=== PATIENT | female | born 1955 | race Caucasian/White ===

== ENCOUNTER → 2017-01-03 | Outpatient (CLI) | payer OTHER | END | disposition home or self-care (01) | LOC: YCFC.O 15:22 | PROVIDERS: ATTEND Nurse Practitioner Family | DX: I50.9 Heart failure, unspecified (principal); I10 Essential (primary) hypertension; R73.09 Other abnormal glucose; E03.9 Hypothyroidism, unspecified; E78.5 Hyperlipidemia, unspecified; M79.604 Pain in right leg; M79.605 Pain in left leg ==

== ENCOUNTER → 2017-03-11 | Outpatient (CLI) | payer OTHER | END | disposition home or self-care (01) | LOC: LAB.O 16:31 | PROVIDERS: ATTEND Nurse Practitioner Family | DX: R06.00 Dyspnea, unspecified (principal); R60.0 Localized edema; D50.9 Iron deficiency anemia, unspecified; E03.9 Hypothyroidism, unspecified; R06.02 Shortness of breath ==

== ENCOUNTER → 2017-12-19 | Outpatient (CLI) | payer OTHER | LOC: YCFC.O 10:29 | PROVIDERS: ATTEND Nurse Practitioner Family | DX: I10 Essential (primary) hypertension (principal); E03.9 Hypothyroidism, unspecified; E78.5 Hyperlipidemia, unspecified; D50.9 Iron deficiency anemia, unspecified ==

== ENCOUNTER → 2018-03-24 | Outpatient (CLI) | payer OTHER ==
--- NOTE | 2018-03-24 17:01 | RAD ---
EXAM DESCRIPTION: Knee,Left 2 or More Views CLINICAL HISTORY: PAIN IN LEFT KNEE COMPARISON: Radiographs of the right knee on the same visit. TECHNIQUE/FINDINGS: AP LATERAL standing oblique standing , patellar sunrise image left knee. Findings: Medial subluxation of the left femur on the tibia. Medial and lateral compartment narrowing more on the lateral side. Marginal spurs and tibial spine spurs. Subchondral sclerosis more lateral than medial. Patellofemoral marginal spurs. Suprapatellar effusion. No abnormal radiodense objects in the soft tissues or joint spaces. No fracture. IMPRESSION: Tricompartmental osteoarthritis left knee more severe laterally than medially with suprapatellar effusion. No acute bony abnormalities. Electronically signed by: Scot Arredondo MD 03/24/2018 5:00 PM CDT
--- NOTE | 2018-03-24 17:05 | RAD ---
EXAM DESCRIPTION: Knee,Right 2 or More Views CLINICAL HISTORY: PAIN IN RIGHT KNEE COMPARISON: Radiographs left knee and pelvis. TECHNIQUE/FINDINGS: AP LATERAL standing, oblique standing, and patellar sunrise image right knee. Findings: Medial and lateral compartment narrowing more laterally. Subchondral sclerosis bilaterally. Marginal osteophytes and also spurs on the tibial spine. Medial subluxation of the right femur on the tibia. Marginal spurs on the patella femoral joint, larger on the medial margin. Suprapatellar effusion. No fracture. No abnormal radiodense objects in the soft tissues or joint spaces. IMPRESSION: Tricompartmental osteoarthritis of the right knee. More severely affecting the lateral compartment in the medial compartment of the patellofemoral joint. Suprapatellar effusion. No acute bony abnormality. Electronically signed by: Scot Arredondo MD 03/24/2018 5:04 PM CDT
--- NOTE | 2018-03-24 17:07 | RAD ---
EXAM DESCRIPTION: Pelvis CLINICAL HISTORY: PAIN IN LT/RT HIPS COMPARISON: Bilateral knee radiographs on the same visit. TECHNIQUE: AP view only. FINDINGS: No fracture dislocation. Minimally Decreased bone density. Minimal hypertrophy of the bilateral superior lateral acetabula. No fracture or dislocation. No abnormal radiodense objects in the soft tissues or joint spaces. IMPRESSION: Minimal loss of bone density. Minimal hypertrophy of the bilateral superior lateral acetabula. No fracture. Electronically signed by: Scot Arredondo MD 03/24/2018 5:06 PM CDT
--- NOTE | 2018-03-26 16:10 | MAM ---
EXAM DESCRIPTION: 3D Screening BILATERAL : Digital Mammography. CLINICAL HISTORY: 62 years Female SCREENING . No complaints. No family history breast cancer. Childbirth. Postmenopausal. No HRT. COMPARISON: 2-D digital screening bilateral study 06/24/2012.. No prior reports available. TECHNIQUE: Bilateral CC and MLO projection full-field images, 3-D tomosynthesis digital mammographic technique. CAD not utilized. FINDINGS: The breast parenchymal density pattern is: Almost entirely fatty. No skin thickening or nipple retraction. Bilateral solitary microcalcifications. No focal, stellate mass or density, focal asymmetry , and no suspicious microcalcifications bilaterally. Stable mammograms compared to prior study, taking into account differences in mammographic technique IMPRESSION: BI-RADS CATEGORY: 2 - BENIGN FINDINGS. FOLLOW UP: Routine digital bilateral screening, one year interval from March 2018. Written communication explaining the IMPRESSION and follow-up, will be mailed to the patient and referring health care provider. According to the [employer], yearly mammograms are recommended starting at age 40 and continuing as long as a woman is in good health. Any breast change noted on a breast self-exam should be reported promptly to the patient's healthcare provider. Breast MRI is recommended for women with an approximately 20-25% or greater lifetime risk of breast cancer, including women with a strong family history of breast or ovarian cancer and women who have been treated for Hodgkin's disease. A negative mammographic report should not delay tissue diagnosis in patients with significant clinical history or physical findings. Extremely dense breast tissue limits the sensitivity of digital mammography. Electronically signed by: Scot Arredondo MD 03/26/2018 4:08 PM CDT
== END ==
LOC: RAD 13:27
PROVIDERS: ATTEND Orthopaedic Surgery
DX: M25.551 Pain in right hip (principal); M25.552 Pain in left hip; M17.0 Bilateral primary osteoarthritis of knee; M25.561 Pain in right knee; M25.562 Pain in left knee

== ENCOUNTER → 2018-11-24 | Outpatient (CLI) | payer MEDICARE, OTHER ==
--- NOTE | 2018-11-24 10:59 | RAD ---
EXAM DESCRIPTION: Chest,2 Views CLINICAL HISTORY: PREOP COMPARISON: Previous chest x-ray August 02, 2016 TECHNIQUE: PA/lateral FINDINGS: Right hemidiaphragm is elevated. Heart size is normal with normal pulmonary vascularity. No pleural effusion or pneumothorax. Lungs are clear with no consolidating infiltrate. Lateral view shows intact sternum and T-spine. IMPRESSION: No acute process is identified in the chest. Electronically signed by: Raúl Alva MD 11/24/2018 10:56 AM [facility]
== END ==
LOC: LAB.O 09:32
PROVIDERS: ATTEND Nurse Practitioner Family
DX: Z01.818 Encounter for other preprocedural examination (principal)

== ENCOUNTER 2019-01-01 11:05 | Inpatient (IN) | payer MEDICARE, OTHER ==
[2019-01-01] MEDS ORDERED: SODIUM CHLORIDE 0.9% 500ML 500 ML ONE (11:25)
[2019-01-01] MEDS ORDERED: DEX 5% W/NACL 0.45% 1000ML 0 ML IVS ONE (13:27)
[2019-01-01] MEDS ORDERED: diphenhydrAMINE HCL 50 MG/ML VIAL ONE (14:12)
[2019-01-01] MEDS ORDERED: ACETAMINOPHEN 500 MG TAB PO PRN (14:45)
[2019-01-01] MEDS ORDERED: SODIUM CHLORIDE 0.9% (FLUSH) 10 ML SYG IV PRN (14:45)
[2019-01-01] MEDS ORDERED: MORPHINE SULFATE INJ 10 MG/ML VIAL IM PRN (14:45)
[2019-01-01] MEDS ORDERED: ONDANSETRON INJ 4 MG/2 ML VIAL IV PRN (14:45)
[2019-01-01] MEDS ORDERED: NALOXONE HCL INJ 0.4 MG/ML VIAL IV PRN (14:45)
[2019-01-01] MEDS ORDERED: PROMETHAZINE HCL INJ 12.5 MG in SODIUM CHLORIDE 0.9% 50ML 50 ML IVPB PRN (14:45)
[2019-01-01] MEDS ORDERED: PROMETHAZINE HCL INJ 25 MG in SODIUM CHLORIDE 0.9% 50ML 50 ML IVPB PRN (14:45)
[2019-01-01] MEDS ORDERED: MORPHINE PCA 1 MG/ML 100 ML BAG IVPB SCH (15:00)
[2019-01-01] MEDS: IV SET AND CAP CHANGE INJ INJ SCH (15:05)
[2019-01-01] MEDS: diphenhydrAMINE HCL 50 MG/ML VIAL IV PRN ×2 (15:06→20:14)
[2019-01-01] MEDS ORDERED: ceFAZolin SODIUM 2 GRAMS PREMI 50 ML IVPB ONE ×2 (15:53→19:28)
[2019-01-01] MEDS: ceFAZolin SODIUM 2 GRAMS PREMI 2 GM in PREMIX BAG 1 BAG IVPB SCH (16:16)
[2019-01-01] MEDS ORDERED: SODIUM CHLORIDE 0.9% 250ML 250 ML ONE ×2 (18:03→19:28)
[2019-01-01] MEDS ORDERED: VANCOMYCIN HCL INJ 1,000 MG VIAL IVPB ONE ×2 (18:04→19:28)
[2019-01-01] MEDS: VANCOMYCIN HCL INJ 1,000 MG in SODIUM CHLORIDE 0.9% 250ML 250 ML IVPB SCH (18:36)
[2019-01-01] MEDS ORDERED: ENOXAPARIN SODIUM 30 MG/0.3 ML SYG SUBCU ONE (19:28)
[2019-01-01] MEDS: DOCUSATE CALCIUM 240 MG CAP PO SCH (20:33)
[2019-01-01] MEDS ORDERED: busPIRone HCL 5 MG TAB PO PRN (20:58)
[2019-01-01] MEDS ORDERED: DIPHENOXYLATE HCL/ATROPINE 2.5 MG TAB PO PRN (20:58)
[2019-01-01] MEDS: MORPHINE SULFATE INJ 10 MG/ML VIAL IV PRN (20:58)
[2019-01-01] MEDS ORDERED: ALBUTEROL SULFATE 2.5 MG/3 ML VIAL NEB PRN (20:58)
[2019-01-01] MEDS ORDERED: NON-FORMULARY MEDICATION 1 EA MIS (Citalopram Hydrobromide [Citalopram Hydrobromide] 40 MG PO SCH (21:00)
[2019-01-01] MEDS ORDERED: FERROUS SULFATE PO SCH (21:00)
[2019-01-01] MEDS ORDERED: NON-FORMULARY MEDICATION 1 EA MIS (Atorvastatin Calcium [Lipitor] 80 MG) PO SCH (21:00)
[2019-01-01] MEDS ORDERED: NON-FORMULARY MEDICATION 1 EA MIS (Diltiazem Hcl [Diltiazem Hcl] 60 MG) PO SCH (21:00)
[2019-01-01] MEDS ORDERED: CITALOPRAM HBR 20 MG TAB ONE (21:05)
[2019-01-01] MEDS ORDERED: diltiaZEM HCL TAB 30 MG TAB ONE (21:05)
[2019-01-01] MEDS ORDERED: FERROUS SULFATE 325 MG TAB ONE (21:05)
[2019-01-01] MEDS ORDERED: ATORVASTATIN 20 MG TAB PO ONE (21:05)
[2019-01-01] MEDS: AMITRIPTYLINE HCL 25 MG TAB PO SCH (21:12)
--- NOTE | 2019-01-01 22:19 | CONS ---
DATE OF CONSULTATION: 01/01/19 SUPERVISING PHYSICIAN: Héctor Adams M.D. REASON FOR CONSULTATION: Medical management status post left total knee arthroplasty. HISTORY OF PRESENT ILLNESS: Ms. Park is a 63 year-old female patient with a longstanding history of severe knee pain that has progressively worsened over the last several months. She has had several attempts at conservative treatment measures but failed to receive any significant relief of pain. Due to the ongoing pain and failure of conservative outpatient treatment measures, she requested operative intervention with a total knee arthroplasty to be performed by Dr. Julito Alexandra. She was admitted for elective left total knee arthroplasty. She had just some mild hypertension in surgery and required an extended length of recovery time in PACU. She had no other complications and was admitted to the floor in stable condition. PAST MEDICAL HISTORY: 1. Anxiety disorder. 2. Hypertension. 3. Questionable seizure disorder having previously been on Depakote at some point not currently on any antiseizure medications. 4. Hypothyroidism. 5. Gastroesophageal reflux disease. 6. Hyperlipidemia. 7. Irregular heart beat on beta ellis and calcium channel blockers. 8. Osteoarthritis especially involving the knees. 9. Chronic diarrhea with irritable bowel syndrome. PAST SURGICAL HISTORY: 1. Bilateral cataracts. 2. Hysterectomy. 3. Cholecystectomy. 4. Right knee scope times 2. 5. Colonoscopy within the last 8 years reportedly normal. HOME MEDICATIONS: 1. Trazodone 100 mg b.i.d. 2. vitamins with iron 1 daily. 3. Potassium chloride 10 mEq daily. 4. Metoprolol tartrate 50 mg daily. 5. Prinivil 5 mg daily. 6. Synthroid 100 mcg daily. 7. Furosemide 40 mg daily. 8. Iron tablets 325 mg q.i.d. 9. Lomotil 2.5 mg q.i.d. as needed. 10. Diltiazem 60 mg b.i.d. 11. Diclofenac 75 mg b.i.d. 12. Colestipol 40 mg at bedtime. 13. Wellbutrin 5 mg q.i.d.a s needed. 14. Lipitor 80 mg daily. 15. Elavil 50 mg at bedtime. 16. Proventil nebs 2.5 mg every 4 hours as needed. 17. Albuterol sulfate handheld inhaler 1 puff every 4 hours as needed. ALLERGIES: LEVOFLOXACIN, CODEINE AND TAPE. FAMILY HISTORY: She has a sister that of lung cancer and was a heavy smoker. Her mother secondary to congestive heart failure. Father from aortic aneurysm. SOCIAL HISTORY: The patient is . Lives in [place], [place] and is retired. She denies any tobacco, illicit or alcohol usage. REVIEW OF SYSTEMS: CONSTITUTIONAL: Denies any weakness, fatigue, fevers, chills, unintentional weight loss. HEENT: Denies any ear aches, sore throat, nasal congestion. RESPIRATORY: Negative for any dyspnea, coughing or wheezing. CARDIOVASCULAR: Denies any chest pains, palpitations, syncopal episodes or tachycardia. GASTROINTESTINAL: History of irritable bowel syndrome. Denies any recent nausea, vomiting, diarrhea, abdominal pains or constipation. GENITOURINARY: Denies hematuria, polyuria, dysuria, nocturia. SKIN: Denies any lesions or rashes. NEUROLOGIC: Last seizure within the last 3 weeks prior to admission. She denies any headaches, dizziness or ataxia. Reports seizure activity as generalized shaking with the patient remaining conscious. PHYSICAL EXAMINATION: VITAL SIGNS: Temperature 97.6, pulse 89, blood pressure initially on the floor was 86/59, heart rate 54, respirations 16, satting 94% on room air. GENERAL: The patient appears her stated age. She is obese. She is resting comfortably in bed currently utilizing a CPM. Reports pain is controlled and appears to be in no acute distress. She is alert. HEENT: Tympanic membranes are clear bilaterally. Oropharynx is pink and moist without any lesions. NECK: Supple, non-tender with full range of motion. CHEST: Lungs are clear to auscultation without any rhonchi, wheezing or rales. HEART: Regular rate and rhythm without appreciable murmurs, gallops, or rubs. ABDOMEN: Obese but soft, non-tender. Positive bowel sounds. EXTREMITIES: No edema. There was a bulky dressing overlying the left knee status post left knee arthroplasty with pedal pulses 2+ bilaterally. NEUROLOGIC: She is awake, alert and oriented times three. SKIN: [place], warm and dry. LABORATORY: Postoperative H&H is pending. ASSESSMENT: 1. Immediate postoperative day 0 for elective total left knee arthroplasty secondary to severe osteoarthritis failing to respond to outpatient treatment measures. Surgery performed by Dr. Julito Alexandra. 2. Hypertension. 3. History of chronic diarrhea with irritable bowel syndrome. 4. General anxiety disorder. 5. Chronic gastroesophageal reflux disease. 6. Hypothyroidism. 7. Hyperlipidemia. 8. Irregular heart beat on beta ellis and calcium channel blockers. PLAN: Will follow the patient as she progresses through her postoperative phase with physical therapy rehabilitation. Will defer orthopedic management to Dr. Alexandra. Will resume her home medications once those have been updated and verified. Will anticipate her length of stay to be 2 to 3 days. Until she can transition to outpatient management, will continue to follow and treat as needed. [facility][id number] [facility]
[2019-01-01] MEDS: ENOXAPARIN SODIUM 30 MG/0.3 ML SYG SUBCU SCH (22:40)
[2019-01-02] MEDS: ceFAZolin SODIUM 2 GRAMS PREMI 2 GM in PREMIX BAG 1 BAG IVPB SCH ×2 (00:11→08:47)
[2019-01-02] MEDS: HYDROcodone 5MG/APAP 325MG 1 EA TAB PO PRN ×6 (00:18→22:50)
[2019-01-02] MEDS ORDERED: DEX 5% W/NACL 0.45% 1000ML 1,000 ML IVS PRN (00:26)
[2019-01-02] MEDS: VANCOMYCIN HCL INJ 1,000 MG in SODIUM CHLORIDE 0.9% 250ML 250 ML IVPB SCH (06:22)
[2019-01-02] MEDS: LEVOTHYROXINE SODIUM 0.1 MG TAB PO SCH (06:23)
[2019-01-02] MEDS ORDERED: ceFAZolin SODIUM 2 GRAMS PREMI 50 ML IVPB ONE (08:44)
[2019-01-02] MEDS: COLESTIPOL HCL 1 GM TAB PO SCH (09:01)
[2019-01-02] MEDS: diltiaZEM HCL TAB 30 MG TAB PO SCH ×2 (09:02→20:55)
[2019-01-02] MEDS: POTASSIUM CHLORIDE 10 MEQ TAB PO SCH (09:02)
[2019-01-02] MEDS: METOPROLOL TARTRATE 50 MG TAB PO SCH (09:02)
[2019-01-02] MEDS: LISINOPRIL 5 MG TAB PO SCH (09:03)
[2019-01-02] MEDS: MAGNESIUM OXIDE 400 MG TAB PO SCH (09:03)
[2019-01-02] MEDS: ENOXAPARIN SODIUM 30 MG/0.3 ML SYG SUBCU SCH ×2 (11:59→22:56)
[2019-01-02] MEDS: diphenhydrAMINE HCL 25 MG CAP PO PRN ×3 (12:00→22:50)
[2019-01-02] MEDS ORDERED: ALBUTEROL INHALER 64 PUFF/8GM INH PRN (12:08)
[2019-01-02] MEDS: MORPHINE SULFATE INJ 10 MG/ML VIAL IV PRN (17:04)
--- NOTE | 2019-01-02 18:23 | PN ---
DATE: 01/02/19 SUPERVISING PHYSICIAN: Héctor Adams M.D. SUBJECTIVE: The patient yesterday had what appeared to be a seizure, although I think it was more of a muscle jerking as the patient never lost consciousness and was never postictal. She has not had any similar episodes through the night. This morning she is much more alert and is noting that her pain is okay as long as she is not moving, but seems to be not as well controlled. She is actually working with physical therapy. I explained to her this is normal, that she needs to request pain management if not given with [place] prior to ambulation and as she progresses pain control will be closely monitored. She has no other further complaints. OBJECTIVE: VITAL SIGNS: She is afebrile at 99.3, pulse 94, blood pressure 115/78, respirations 18, satting 95% on 2 liters nasal cannula. CHEST: Clear to auscultation. HEART: Regular rate and rhythm. ABDOMEN: Soft, non-tender. Positive bowel sounds. EXTREMITIES: Left knee has a bulky dressing in place. Distally pulses are strong, capillary refill brisk. NEUROLOGIC: She is alert and oriented times three. LABORATORY: Postoperative H&H was pending. ASSESSMENT: 1. Immediate postoperative day 1 for elective total left knee arthroplasty secondary to severe osteoarthritis failing to respond to outpatient treatment measures. Surgery performed by Dr. Julito Alexandra. 2. Hypertension. 3. History of chronic diarrhea with irritable bowel syndrome. 4. General anxiety disorder. 5. Chronic gastroesophageal reflux disease. 6. Hypothyroidism. 7. Hyperlipidemia. 8. Irregular heart beat on beta ellis and calcium channel blockers. PLAN: Will continue to follow the patient through her physical therapy progression. I have resumed her home medications. Will defer again orthopedic management to Dr. Alexandra. Will closely monitor her pain control and transition her to oral medications as soon as possible. Until she can transition to outpatient management will continue to follow and treat as needed. #[id number] [facility]
--- NOTE | 2019-01-02 19:07 | OP ---
DATE OF PROCEDURE: 01/02/19 PREOPERATIVE DIAGNOSIS: 1. Osteoarthritis of the knee. POSTOPERATIVE DIAGNOSIS: 1. Osteoarthritis of the knee. PROCEDURE: 1. Total knee arthroplasty. SURGEON: Julito Alexandra M.D. PEDIATRIC SPORTS MEDICINE SPECIALIST: Scot Vo CST, SA-C ANESTHESIA: General anesthesia. COMPLICATIONS: None. FINDINGS: Severe osteoarthritis of the knee. INDICATION FOR PROCEDURE: Ms. Kumari has a history of severe pain in the knee that has been refractory to conservative measures. Unfortunately she has failed to get relief and has continued to have symptoms that are disruptive to her daily activities. Because of that she has requested operative intervention. After discussing the risks, benefits, and alternatives to that, she has given informed consent for total knee arthroplasty. DESCRIPTION OF PROCEDURE: The patient was brought to the Operating Room and placed in supine position. General anesthesia was induced and the patient's leg was sterilely prepped and draped. Following prepping and draping, the distal femur was exposed and using an intramedullary guide, the distal femoral cut was made. The appropriate sized cutting block was measured, pinned into place, and the anterior, posterior, and chamfer cuts were made. The ACL was transected and the tibia was subluxed. Both the medial and lateral menisci were removed. An intramedullary guide was used to make the proximal tibial cut. The appropriate sized base plate was placed and a trial polyethylene was placed. The trial femur was placed, the knee was reduced, and the knee was taken through a range of motion. The knee was stable in anterior, posterior, varus and valgus stress. The patella tracked anatomically without evidence of subluxation or dislocation. After trialing, the trial components were removed and the bony surfaces were thoroughly irrigated with saline. Following irrigation, the surfaces were dried and the final components were cemented into place. The excess cement was removed and the remaining cement was allowed to cure. The knee was again taken through a range of motion to confirm stability. The wound was then irrigated with saline and closure was performed using PDS to approximate the arthrotomy followed by closure of the subcutaneous tissues with a combination of running and interrupted Monocryl sutures. Sterile dressing was placed. The patient was awoken from anesthesia and taken to Recovery. COMPONENTS: [place] triathlon knee, size 4 femur, size 4 tibia, 9 mm insert. POSTOPERATIVE INSTRUCTIONS: The patient will be weightbearing as tolerated on postoperative day 1. #[id number] [facility]
[2019-01-02] MEDS: ATORVASTATIN 20 MG TAB PO SCH (20:51)
[2019-01-02] MEDS: AMITRIPTYLINE HCL 25 MG TAB PO SCH (20:52)
[2019-01-02] MEDS: CITALOPRAM HBR 20 MG TAB PO SCH (20:52)
[2019-01-02] MEDS: DOCUSATE CALCIUM 240 MG CAP PO SCH (20:53)
[2019-01-02] MEDS: FERROUS SULFATE 325 MG TAB PO SCH (20:53)
[2019-01-02] MEDS: traZODone HCL 100 MG TAB PO SCH (20:53)
[2019-01-03] MEDS: LEVOTHYROXINE SODIUM 0.1 MG TAB PO SCH (05:40)
[2019-01-03] MEDS: diphenhydrAMINE HCL 25 MG CAP PO PRN ×5 (06:05→21:38)
[2019-01-03] MEDS: HYDROcodone 5MG/APAP 325MG 1 EA TAB PO PRN (06:05)
[2019-01-03] MEDS: METOPROLOL TARTRATE 50 MG TAB PO SCH (08:01)
[2019-01-03] MEDS: POTASSIUM CHLORIDE 10 MEQ TAB PO SCH (08:01)
[2019-01-03] MEDS: COLESTIPOL HCL 1 GM TAB PO SCH (09:06)
[2019-01-03] MEDS: FUROSEMIDE 40 MG TAB PO SCH (09:06)
[2019-01-03] MEDS: traZODone HCL 100 MG TAB PO SCH ×2 (09:06→21:29)
[2019-01-03] MEDS: diltiaZEM HCL TAB 30 MG TAB PO SCH ×2 (09:06→21:29)
[2019-01-03] MEDS: LISINOPRIL 5 MG TAB PO SCH (09:06)
[2019-01-03] MEDS: MAGNESIUM OXIDE 400 MG TAB PO SCH (09:06)
[2019-01-03] MEDS: SODIUM CHLORIDE 0.9% (FLUSH) 10 ML SYG IV SCH ×2 (09:12→21:35)
[2019-01-03] MEDS: HYDROcodone 10MG/APAP 325MG 1 EA TAB PO PRN ×4 (10:12→21:37)
[2019-01-03] MEDS: ENOXAPARIN SODIUM 30 MG/0.3 ML SYG SUBCU SCH ×2 (12:40→23:04)
[2019-01-03] MEDS: ATORVASTATIN 20 MG TAB PO SCH (21:28)
[2019-01-03] MEDS: FERROUS SULFATE 325 MG TAB PO SCH (21:28)
[2019-01-03] MEDS: DOCUSATE CALCIUM 240 MG CAP PO SCH (21:29)
[2019-01-03] MEDS: CITALOPRAM HBR 20 MG TAB PO SCH (21:30)
[2019-01-03] MEDS: AMITRIPTYLINE HCL 25 MG TAB PO SCH (21:30)
--- NOTE | 2019-01-03 22:02 | PN ---
DATE: 01/03/19 SUPERVISING PHYSICIAN: Héctor Adams M.D. SUBJECTIVE: The patient continues to show good improvement. Her pain has been better controlled in the last 12 to 24 hours with increasing her [place] to 10. She has had no complications. No nausea or vomiting. No further seizure-like activities. We did discuss with her discharge planning as far as possibly going to inpatient rehab at [facility] versus outpatient. Will continue to discuss with family and social staff worker. OBJECTIVE: VITAL SIGNS: temperature 97.4, pulse 70, blood pressure 101/68, respirations 20, satting 96% on nasal cannula at rest. Weight is 97.6 kg. GENERAL: The patient is resting comfortably in bed. She is alert. CHEST: Clear to auscultation. HEART: Regular rate and rhythm. ABDOMEN: Soft, non-tender. Positive bowel sounds. EXTREMITIES: Left knee has an island dressing in place that is clean and dry with no signs of infection or erythema. Pulses distally are strong with capillary refill brisk. NEUROLOGIC: She is alert and oriented times three. No additional laboratory or radiographic studies. ASSESSMENT: 1. Immediate postoperative day 2 for elective total left knee arthroplasty secondary to severe osteoarthritis failing to respond to outpatient treatment measures. Surgery performed by Dr. Julito Alexandra. 2. Hypertension. 3. History of chronic diarrhea with irritable bowel syndrome. 4. General anxiety disorder. 5. Chronic gastroesophageal reflux disease. 6. Hypothyroidism. 7. Hyperlipidemia. 8. Irregular heart beat on beta ellis and calcium channel blockers. PLAN: Again, will continue to follow the patient as she progresses through her physical therapy. I have again discussed with her and her their thoughts on outpatient rehab process. I did mention to them [facility] versus [facility], and of course possible [facility]. Will continue to work with Danii and the family, and anticipate discharge later this week, either Friday or Friday. Until then will continue to monitor and treat as needed. #[id number] [facility]
[2019-01-04] MEDS: HYDROcodone 10MG/APAP 325MG 1 EA TAB PO PRN ×3 (05:23→20:08)
[2019-01-04] MEDS: diphenhydrAMINE HCL 25 MG CAP PO PRN ×3 (05:23→20:08)
[2019-01-04] MEDS: LEVOTHYROXINE SODIUM 0.1 MG TAB PO SCH (05:52)
[2019-01-04] MEDS: MAGNESIUM OXIDE 400 MG TAB PO SCH (08:05)
[2019-01-04] MEDS: COLESTIPOL HCL 1 GM TAB PO SCH (08:05)
[2019-01-04] MEDS: POTASSIUM CHLORIDE 10 MEQ TAB PO SCH (08:06)
[2019-01-04] MEDS: METOPROLOL TARTRATE 50 MG TAB PO SCH (08:06)
[2019-01-04] MEDS: traZODone HCL 100 MG TAB PO SCH ×2 (08:06→20:44)
[2019-01-04] MEDS: LISINOPRIL 5 MG TAB PO SCH (08:06)
[2019-01-04] MEDS: diltiaZEM HCL TAB 30 MG TAB PO SCH ×2 (08:06→20:45)
[2019-01-04] MEDS: SODIUM CHLORIDE 0.9% (FLUSH) 10 ML SYG IV SCH ×2 (08:30→20:44)
--- NOTE | 2019-01-04 09:08 | PN ---
DATE: 01/01/19 POSTOPERATIVE CHECK SUBJECTIVE: Ms. Kumari is doing well. OBJECTIVE: Afebrile. Vital signs stable. Dressing is clean, dry and intact. ASSESSMENT: Status post total knee arthroplasty. PLAN: The plan is to begin weightbearing as tolerated on postoperative day 1. #[id number] [facility]
--- NOTE | 2019-01-04 09:16 | PN ---
DATE: 01/02/19 SUBJECTIVE: Ms. Kumari is doing well today and is on her CPM. She has ambulated. She has well controlled pain. OBJECTIVE: Afebrile. Vital signs stable. Dressing is clean, dry and intact. ASSESSMENT: Status post total knee arthroplasty. PLAN: The plan at this point is for her to continue on weightbearing status. She will continue to increase CPM as tolerated. #[id number] [facility]
[2019-01-04] MEDS: ENOXAPARIN SODIUM 30 MG/0.3 ML SYG SUBCU SCH ×2 (10:41→22:49)
[2019-01-04] MEDS: IV SET AND CAP CHANGE INJ INJ SCH (15:55)
[2019-01-04] MEDS: AMITRIPTYLINE HCL 25 MG TAB PO SCH (20:44)
[2019-01-04] MEDS: ATORVASTATIN 20 MG TAB PO SCH (20:44)
[2019-01-04] MEDS: DOCUSATE CALCIUM 240 MG CAP PO SCH (20:44)
[2019-01-04] MEDS: CITALOPRAM HBR 20 MG TAB PO SCH (20:44)
[2019-01-04] MEDS: FERROUS SULFATE 325 MG TAB PO SCH (20:44)
--- NOTE | 2019-01-04 20:52 | PN ---
DATE: 01/04/19 SUPERVISING PHYSICIAN: Francisco Malik M.D. SUBJECTIVE: The patient is continuing to progress well. She has had no complaints. She notes that she has had fairly good control of her pain as long as she requests pain management or gets pain management prior to her physical therapy sessions. She actually was able to sleep through the night last night. She has had no further complaints. OBJECTIVE: VITAL SIGNS: Temperature 98.2, pulse 85, blood pressure 104/69, respirations 16, satting 94% on room air. GENERAL: The patient is alert in no acute distress. CHEST: Lungs are clear to auscultation. HEART: Regular rate and rhythm. ABDOMEN: Obese but soft, non-tender. Positive bowel sounds. EXTREMITIES: Left knee has a dressing in place that is clean and dry. No notes of infection. No erythema. Minimal swelling. Distally pulses are strong, capillary refill is brisk. NEUROLOGIC: She is alert and oriented times three. ASSESSMENT: 1. Postoperative day 3 for elective total left knee arthroplasty secondary to severe osteoarthritis having failed to respond to outpatient treatment measures with surgery performed by Dr. Julito Alexandra. 2. Hypertension. The patient has been mildly hypotensive postoperatively but has shown no distress. 3. History of chronic diarrhea with irritable bowel syndrome. 4. General anxiety disorder. 5. Chronic gastroesophageal reflux disease. 6. Hypothyroidism. 7. Hyperlipidemia. 8. Irregular heart beat on beta ellis and calcium channel blockers. PLAN: The patient is progressing well with her physical therapy. Discussed with her today hopefully they will be able to discharge either tomorrow or Friday. Her plan is to continue with outpatient management with home health as she resides in an in [place]. They have opted to refer to [facility] for continued management of her physical therapy. Until she can transition to outpatient management will continue to monitor and treat as needed. [facility][id number] [facility]
[2019-01-04] MEDS ORDERED: BISACODYL SUPPOSITORY 10 MG PR ONE (21:00)
[2019-01-04] MEDS ORDERED: MAGNESIUM HYDROXIDE 30 ML UD PO ONE (21:00)
[2019-01-05] MEDS: LEVOTHYROXINE SODIUM 0.1 MG TAB PO SCH (06:10)
[2019-01-05] MEDS: COLESTIPOL HCL 1 GM TAB PO SCH (08:04)
[2019-01-05] MEDS: HYDROcodone 10MG/APAP 325MG 1 EA TAB PO PRN (08:04)
[2019-01-05] MEDS: traZODone HCL 100 MG TAB PO SCH (08:04)
[2019-01-05] MEDS: POTASSIUM CHLORIDE 10 MEQ TAB PO SCH (08:04)
[2019-01-05] MEDS: MAGNESIUM OXIDE 400 MG TAB PO SCH (08:05)
[2019-01-05] MEDS: METOPROLOL TARTRATE 50 MG TAB PO SCH (08:05)
[2019-01-05] MEDS: diphenhydrAMINE HCL 25 MG CAP PO PRN (08:05)
[2019-01-05] MEDS: LISINOPRIL 5 MG TAB PO SCH (08:05)
[2019-01-05] MEDS: SODIUM CHLORIDE 0.9% (FLUSH) 10 ML SYG IV SCH (08:06)
[2019-01-05] MEDS: diltiaZEM HCL TAB 30 MG TAB PO SCH (08:06)
[2019-01-05] MEDS: FUROSEMIDE 40 MG TAB PO SCH (08:06)
[2019-01-05] MEDS: ENOXAPARIN SODIUM 30 MG/0.3 ML SYG SUBCU SCH (10:58)
[2019-01-05 11:06] VITALS: BP 91/61; TEMP 98.4
[2019-01-05 11:11] VITALS: O2SAT 93
--- NOTE | 2019-01-05 13:48 | DS ---
SUPERVISING PHYSICIAN: Avelino Malik MD DISCHARGE DIAGNOSIS: 1. Postoperative day 4 for elective total left knee arthroplasty secondary to severe osteoarthritis having failed to respond to outpatient treatment measures. Surgery was performed by Dr. Julito Alexandra, orthopedic surgeon. 2. Hypertension. The patient was mildly hypotensive postoperatively but has had no problem since. 3. History of irritable bowel syndrome with chronic diarrhea. 4. Generalized anxiety disorder. 5. Gastroesophageal reflux disease. 6. Hypothyroidism on supplementation. 7. Hyperlipidemia. 8. Irregular heartbeat on beta ellis and calcium channel blockers. HISTORY OF PRESENT ILLNESS: This is a 63-year-old female patient with a longstanding history of severe knee pain that has progressively worsened over the last several months. She attempted conservative treatment measures, but failed to receive any significant relief. Due to the ongoing pain and failure of conservative outpatient treatment measures, she requested operative intervention with a left total knee arthroplasty per Dr. Julito Alexandra, orthopedic surgeon. On the date of admission, she had left total knee arthroplasty performed. She was seen in consultation on the Medical/Surgical Floor in the hospital. She had no problems intraoperatively. HOSPITAL COURSE: Postoperatively, she had some mild hypotension, but had no significant problems. She continued and completed her physical therapy for strengthening and conditioning. It was reported that she had seizure-like activity, but the patient did not lose consciousness and she never was post ictal. It was thought to be some muscle jerking. She had no further issues during her hospital stay. She has met her requirements for physical therapy and will be discharged today in stable condition. DISCHARGE PLAN: The patient will be discharged home in stable condition. She is to resume her activity as instructed by physical therapy. She has a followup appointment with Dr. Alexandra on 01/21/19 at 10 AM. She was discharged on her previous home medications as well as a prescription of [place] and 7 additional days of Xarelto to complete her postoperative knee prophylactic anticoagulant. She is to return to the hospital or call Dr. Alexandra's office for any problems or complications. She will have physical therapy with [facility]. DISCHARGE MEDICATIONS: 1. [place]. 2. Levothyroxine. 3. Lomotil. 4. Diltiazem. 5. Colestipol. 6. Citalopram. 7. Lipitor. 8. Elavil. 9. Metoprolol. 10. Prinivil. 11. BuSpar. 12. Albuterol nebulizers. 13. Trazodone. 14. Potassium chloride. 15. Furosemide. 16. Albuterol HFA. 17. Ferrous sulfate. 18. Omeprazole. 19. Multivitamins. 20. Lili. #[id number] [facility]
== END 2019-01-05 13:01 | disposition home health service (06) | DRG 470 ==
LOC: MS 11:05
PROVIDERS: ADMIT Orthopaedic Surgery; ATTEND Nurse Practitioner Acute Care
PROC: 0SRD0J9 Replacement of Left Knee Joint with Synthetic Substitute, Cemented, Open Approach (ICD-10-PCS; principal; 2019-01-01)
PROC: 3E0T3BZ Introduction of Anesthetic Agent into Peripheral Nerves and Plexi, Percutaneous Approach (ICD-10-PCS; 2019-01-01)
DX: M17.12 Unilateral primary osteoarthritis, left knee (principal); I95.9 Hypotension, unspecified; K21.9 Gastro-esophageal reflux disease without esophagitis; I10 Essential (primary) hypertension; I49.9 Cardiac arrhythmia, unspecified; J44.9 Chronic obstructive pulmonary disease, unspecified; F41.1 Generalized anxiety disorder; E03.9 Hypothyroidism, unspecified; E78.5 Hyperlipidemia, unspecified; K58.0 Irritable bowel syndrome with diarrhea; F17.210 Nicotine dependence, cigarettes, uncomplicated; E66.9 Obesity, unspecified; Z88.1 Allergy status to other antibiotic agents; Z88.5 Allergy status to narcotic agent; Z79.899 Other long term (current) drug therapy; Z68.39 Body mass index [BMI] 39.0-39.9, adult

== ENCOUNTER → 2019-04-16 | Outpatient (CLI) | payer MEDICARE, OTHER | LOC: LAB.O 09:19 | PROVIDERS: ATTEND Internal Medicine Rheumatology | DX: R76.0 Raised antibody titer (principal); R21 Rash and other nonspecific skin eruption; M25.50 Pain in unspecified joint ==

== ENCOUNTER → 2019-06-22 | Outpatient (CLI) | payer MEDICARE, OTHER | LOC: YCFC.O 12:38 | PROVIDERS: ATTEND Nurse Practitioner Family | DX: R82.90 Unspecified abnormal findings in urine (principal); M54.5 Low back pain ==

== ENCOUNTER → 2019-06-24 | Outpatient (CLI) | payer MEDICARE, OTHER ==
--- NOTE | 2019-06-25 13:24 | US ---
EXAM DESCRIPTION: Renal: Ultrasound. CLINICAL HISTORY: 63 years Female DECREASED RENAL FUNCTION COMPARISON: CT abdomen and pelvis with contrast 09/26/2013. TECHNIQUE: Transcutaneous scanning: Two-dimensional and Doppler modes. FINDINGS: Right kidney measures 9.4 x 4.5 x 4.3 cm; mid-renal cortical thickness 11.7 mm. . Increased echogenicity but less than the liver. No hydronephrosis No echogenic stones. Lobulated contour of the kidney with no perinephric fluid. Normal vascularity. Proximal ureter not visualized. Left kidney measures 9.4 x 5.0 x 5.8 cm; mid-renal cortical thickness 10.9 mm.. Increased cortical echogenicity but less than the liver. No hydronephrosis. No echogenic stones. Lobulated contour of the kidney with no perinephric fluid. Normal vascularity.. Proximal ureter not visualized. Urinary bladder was visualized. Volume was not measured. Abdominal aorta: not measured. IMPRESSION: Both kidneys are small with cortical thinning more on the left. Increased echogenicity in the cortex bilaterally but no greater than the liver. Bilateral lobulated capsule. No echogenic stones, no perirenal fluid, no hydronephrosis. Electronically signed by: Scot Arredondo MD 06/25/2019 1:22 PM CDT
== END ==
LOC: LAB.O 10:46
PROVIDERS: ATTEND Nurse Practitioner Family
DX: R94.4 Abnormal results of kidney function studies (principal)

== ENCOUNTER → 2020-02-02 | Outpatient (CLI) | payer MEDICARE, OTHER | LOC: NM 09:49 | PROVIDERS: ATTEND Nurse Practitioner | DX: R94.31 Abnormal electrocardiogram [ECG] [EKG] (principal) ==

== ENCOUNTER → 2020-07-21 | Outpatient (CLI) | payer MEDICARE, OTHER | LOC: YCFC.O 12:38 | PROVIDERS: ATTEND Family Medicine | DX: E03.9 Hypothyroidism, unspecified (principal) ==

== ENCOUNTER → 2020-08-08 | Outpatient (CLI) | payer MEDICARE, OTHER | LOC: YCFC.O 16:16 | PROVIDERS: ATTEND Nurse Practitioner Family | DX: Z20.818 Contact with and (suspected) exposure to other bacterial communicable diseases (principal); Z11.59 Encounter for screening for other viral diseases ==

== ENCOUNTER → 2020-08-15 | Outpatient (CLI) | payer MEDICARE, OTHER | LOC: YCFC.O 15:52 | PROVIDERS: ATTEND Nurse Practitioner Family | DX: Z20.818 Contact with and (suspected) exposure to other bacterial communicable diseases (principal); Z20.828 Contact with and (suspected) exposure to other viral communicable diseases ==